=== PATIENT | female | born 1975 | race African-American/Black ===

== ENCOUNTER 2019-06-02 03:59 | Emergency (ER) | payer BC ==
[~2019-06-02] VITALS: Ht 157.5 cm; Wt 56.7 kg
[2019-06-02 04:01] VITALS: BP 114/62
[2019-06-02] MEDS ORDERED: AMOXICILLIN875 MG PO (04:19)
[2019-06-02] MEDS ORDERED: DIFLUCAN150 MG PO (04:19)
[2019-06-02] MEDS ORDERED: TESSALON PERLE100 MG PO (04:19)
[2019-06-02] MEDS ORDERED: VENTOLIN HFA 1818 GM INH (04:19)
== END 2019-06-02 04:36 | disposition home or self-care (01) ==
LOC: ER 03:59
DX: J20.9 Acute bronchitis, unspecified (principal); J45.909 Unspecified asthma, uncomplicated; M79.7 Fibromyalgia; Z88.6 Allergy status to analgesic agent; Z88.0 Allergy status to penicillin; Z88.2 Allergy status to sulfonamides

== ENCOUNTER 2019-06-07 05:32 | Emergency (ER) | payer BC, OTHER ==
[~2019-06-07] VITALS: Ht 160 cm; Wt 56.7 kg
[~2019-06-07 05:32] MED LIST: AMOXICILLIN875 MG PO; DIFLUCAN150 MG PO; TESSALON PERLE100 MG PO; VENTOLIN HFA 1818 GM INH
[2019-06-07] MEDS ORDERED: DOXYCYCLINE 10100 M2 PO (05:41)
[2019-06-07] MEDS ORDERED: TAMIFLU75 MG PO (06:49)
[2019-06-07 06:59] VITALS: BP 103/57
== END 2019-06-07 06:59 | disposition home or self-care (01) ==
LOC: ER 05:32
DX: J09.X2 Influenza due to identified novel influenza A virus with other respiratory manifestations (principal); J45.909 Unspecified asthma, uncomplicated; M79.7 Fibromyalgia; Z88.0 Allergy status to penicillin; Z88.2 Allergy status to sulfonamides; Z88.6 Allergy status to analgesic agent

== ENCOUNTER → 2019-12-17 | Outpatient (CLI) | payer BC, OTHER ==
[~2019-12-17] MED LIST changes: +DOXYCYCLINE 10100 M2 PO; +TAMIFLU75 MG PO
== END ==
LOC: RAD 13:16
PROVIDERS: ATTEND Family Medicine
DX: M54.2 Cervicalgia (principal)

== ENCOUNTER → 2020-05-07 | Outpatient (CLI) | payer BC, OTHER | LOC: ULTRA 09:18 | PROVIDERS: ATTEND Family Medicine | DX: R10.84 Generalized abdominal pain (principal); R11.0 Nausea ==